=== PATIENT | male | born 1990 | race Caucasian/White ===

== ENCOUNTER 2017-05-20 00:01 | Emergency (ER) | payer OTHER ==
[2017-05-20 00:18] VITALS: TEMP 98.7
[2017-05-20] MEDS ORDERED: diphenhydrAMINE 50 MG/ML 1 ML VIAL IVP STA (00:31)
[2017-05-20] MEDS ORDERED: SODIUM CHLORIDE 0.9% 500 ML IV ONE (00:31)
[2017-05-20] MEDS ORDERED: METOCLOPRAMIDE 5 MG/ML 2 ML VIAL IVP STA (00:31)
[2017-05-20] MEDS ORDERED: KETOROLAC 30 MG/ML 1 ML VIAL IVP STA (00:31)
[2017-05-20] MEDS ORDERED: ORPHENADRINE 30 MG/ML 2 ML VIAL IVP STA (00:31)
--- NOTE | 2017-05-20 00:51 | CT ---
EXAM: CT Head Without Intravenous Contrast CLINICAL HISTORY: Reason: pain TECHNIQUE: Axial computed tomography images of the head/brain without intravenous contrast. CTDI is 58 mGy and DLP is 996 mGy-cm. This CT exam was performed using one or more of the following dose reduction techniques: automated exposure control, adjustment of the mA and/or kV according to patient size, and/or use of iterative reconstruction technique. COMPARISON: No relevant prior studies available. FINDINGS: Brain: No hemorrhage, large hypodensity, or mass effect. Ventricles: No hydrocephalus. Bones/joints: Unremarkable. Soft tissues: Unremarkable. Sinuses: Unremarkable. Mastoid air cells: Clear. IMPRESSION: No acute hemorrhage, hydrocephalus, or mass effect.
--- NOTE | 2017-05-20 01:23 | ED ---
Headache HPI - General Chief Complaint: Headache Stated Complaint: Headache Time Seen by Provider: 05/20/17 00:19 Source: patient, family, RN notes reviewed Mode of arrival: ambulatory Limitations: no limitations - History of Present Illness Initial Comments: This a 26-year-old male presents emergency Department chief complaint headache. Patient states that headache for 4 days states it has waxed and waned. Patient states that he has a history of migraine headaches diagnosed by himself. He states he's never had an MRI, CT or an evaluation by neurology. Patient states he normally just takes Excedrin states that is not alleviating his symptoms at this time. Patient denies any photosensitivity denies nausea, vomiting, fever, chills, neck pain. Patient states the headache physical squeezing pressure in size of his head. Patient states he also suffers from anxiety which is brother has anxiety at this time. - Related Data Home Medications Medication Instructions Recorded Confirmed ALPRAZolam [Xanax] 1 mg PO Q8HR 05/20/17 05/20/17 Buprenorphine HCl/Naloxone HCl 2 mg PO BID 05/20/17 05/20/17 [Suboxone 2 mg-0.5 mg Sl Film] Gabapentin 800 mg PO TID 05/20/17 05/20/17 Allergies Allergy/AdvReac Type Severity Reaction Status Date / Time No Known Allergies Allergy Verified 05/20/17 00:18 Review of Systems ROS Statement: Those systems with pertinent positive or pertinent negative responses have been documented in the HPI. ROS Other: All systems not noted in ROS Statement are negative. Past Medical History Additional Past Medical History / Comment(s): migraines History of Any Multi-Drug Resistant Organisms: None Reported Past Surgical History: Hernia Repair Past Psychological History: Anxiety Smoking Status: Current every day smoker Past Alcohol Use History: None Reported Past Drug Use History: None Reported General Exam Limitations: no limitations General appearance: alert, in no apparent distress Head exam: Present: atraumatic, normocephalic, normal inspection Eye exam: Present: normal appearance, PERRL, EOMI. Absent: scleral icterus, conjunctival injection, periorbital swelling ENT exam: Present: normal exam, normal oropharynx, mucous membranes moist, TM's normal bilaterally, normal external ear exam Neck exam: Present: normal inspection, full ROM. Absent: tenderness, meningismus, lymphadenopathy Respiratory exam: Present: normal lung sounds bilaterally. Absent: respiratory distress, wheezes, rales, rhonchi, stridor Cardiovascular Exam: Present: regular rate, normal rhythm, normal heart sounds. Absent: systolic murmur, diastolic murmur, rubs, gallop, clicks Extremities exam: Present: normal inspection, full ROM, normal capillary refill. Absent: tenderness, pedal edema, joint swelling, calf tenderness Neurological exam: Present: alert, oriented X3, CN II-XII intact, reflexes normal, other ([id number] intact bilaterally without overshooting). Absent : motor sensory deficit Psychiatric exam: Present: anxious Skin exam: Present: warm, dry, intact, normal color. Absent: rash Course Vital Signs 05/20/17 00:14 Temperature 98.7 F Pulse Rate 84 Respiratory 18 Rate Blood Pressure 129/76 O2 Sat by Pulse 98 Oximetry Medical Decision Making - Medical Decision Making 26 show male presented for headache. Patient CT shows no sign acute abdomen. Patient states medications given emergency Department are improving his symptoms. Patient has a normal neuro exam patient will be be discharged with follow-up with neurology as he is not been evaluated by neurologist for his migraine headaches. Return parameters were discussed. Disposition Clinical Impression: Migraine Disposition: HOME SELF-CARE Condition: Stable Instructions: Acute Headache (ED) Additional Instructions: Please return to the Emergency Department if symptoms worsen or any other concerns. Referrals: Nonstaff,Physician [Primary Care Provider] - 1-2 days Alyce Chacon MD [STAFF PHYSICIAN] - 1-2 days Time of Disposition: 01:36
[2017-05-20 01:55] VITALS: BP 115/56; PULSE 77; RESP 16
== END 2017-05-20 01:55 | disposition home or self-care (01) ==
LOC: EC 00:01
DX: G43.909 Migraine, unspecified, not intractable, without status migrainosus (principal); F41.9 Anxiety disorder, unspecified; F17.200 Nicotine dependence, unspecified, uncomplicated; Z79.899 Other long term (current) drug therapy
CPT/HCPCS: 70450; 99283; 96374; 96375 ×2; J1200; J2765; J1885

== ENCOUNTER 2019-01-27 19:18 | Emergency (ER) | payer OTHER ==
[2019-01-27 19:46] VITALS: BP 125/75; PULSE 97; RESP 20; TEMP 99.2
--- NOTE | 2019-01-27 21:07 | ED ---
ENT HPI - General Chief complaint: ENT Stated complaint: Tonsillitis Time Seen by Provider: 01/27/19 20:03 Source: patient Mode of arrival: ambulatory Limitations: no limitations - History of Present Illness Initial comments: Patient is a 28-year-old male presenting to emergency Department with complaints of tonsillitis that has been increasing over the past 2 days. Patient states he typically gets this 2-3 times a year. Patient recently completed a course of amoxicillin for a positive strep tonsillitis. Patient states he finished the medication yesterday however the last 3 days he has been having increase in pain and low-grade fevers. Patient states he took a Motrin approximately 1 hour prior to arrival. Patient denies nausea, vomiting, trouble breathing, chest pain. Patient has no other complaints at this time. 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 Patient states he was approximately 9 months clean and then had a single relapse approximately 6 days ago. Upon arrival to ER, vital signs are stable. - Related Data Home Medications Medication Instructions Recorded Confirmed ALPRAZolam [Xanax] 1 mg PO Q8HR 05/20/17 01/27/19 Buprenorphine HCl/Naloxone HCl 2 mg PO BID 05/20/17 01/27/19 [Suboxone 2 mg-0.5 mg Sl Film] Gabapentin 800 mg PO TID 05/20/17 01/27/19 Previous Rx's Medication Instructions Recorded Penicillin V Potassium [Pen Vee K] 500 mg PO BID 10 Days #20 tablet 01/27/19 Allergies Allergy/AdvReac Type Severity Reaction Status Date / Time No Known Allergies Allergy Verified 01/27/19 19:45 Review of Systems ROS Statement: Those systems with pertinent positive or pertinent negative responses have been documented in the HPI. ROS Other: All systems not noted in ROS Statement are negative. Past Medical History Additional Past Medical History / Comment(s): migraines, tonsilitis History of Any Multi-Drug Resistant Organisms: None Reported Past Surgical History: Hernia Repair Past Psychological History: Anxiety Smoking Status: Current every day smoker Past Alcohol Use History: None Reported Past Drug Use History: None Reported General Exam - General Exam Comments Initial Comments: GENERAL: Well-appearing, well-nourished and in no acute distress. HEAD: Atraumatic, normocephalic. EYES: Pupils equal round and reactive to light, extraocular movements intact, sclera anicteric, conjunctiva are normal. ENT: TMs normal, nares patent, oropharynx erythematous, tonsils 2+ enlarged with exudate. No tonsillar abscess seen. Uvula midline. Moist mucous membranes. NECK: Normal range of motion, supple without lymphadenopathy or JVD. LUNGS: Breath sounds clear to auscultation bilaterally and equal. No wheezes rales or rhonchi. HEART: Regular rate and rhythm without murmurs, rubs or gallops. ABDOMEN: Soft, nontender, normoactive bowel sounds. No guarding, no rebound. No masses appreciated. : Deferred EXTREMITIES: Normal range of motion, no pitting or edema. No clubbing or cyanosis. NEUROLOGICAL: Cranial nerves II through XII grossly intact. Normal speech, normal gait. PSYCH: Normal mood, normal affect. SKIN: Warm, Dry, normal turgor, no rashes or lesions noted. Limitations: no limitations Course Vital Signs 01/27/19 19:42 Temperature 99.2 F Pulse Rate 97 Respiratory 20 Rate Blood Pressure 125/75 O2 Sat by Pulse 100 Oximetry Medical Decision Making - Medical Decision Making Patient is a 28-year-old male presenting with tonsillitis 3 days. Patient just finished a course of amoxicillin for a positive strep tonsillitis yesterday. Patient states the previous 3 days his pain and low-grade fevers has returned. On exam patient has erythema of the oropharynx as well as 2+ tonsillar enlargement with exudate. No abscess seen, uvula midline. Strep today was negative. Patient will be started on penicillin VK for tonsillitis and will be given referral to ENT. The patient states he has these infections at least 3-4 times a year. Patient is agreement with this plan and care. Patient is stable for discharge at this time. Return parameters were discussed with the patient and he verbalized understanding. Case discussed with Dr. Diaz. - Lab Data Lab Results 01/27/19 Range/Units 20:30 Group A Strep Rapid Negative (Negative) Disposition Clinical Impression: Sore throat, Tonsillitis Disposition: HOME SELF-CARE Condition: Stable Instructions (If sedation given, give patient instructions): Tonsillitis (ED) Additional Instructions: Please return to the Emergency Department if symptoms worsen or any other concerns. Follow-up with ENT as discussed. Prescriptions: Penicillin V Potassium [Pen Vee K] 500 mg PO BID 10 Days #20 tablet Is patient prescribed a controlled substance at d/c from ED?: No Referrals: Nonstaff,Physician [Primary Care Provider] - 1-2 days Rupert Zaidi MD [STAFF PHYSICIAN] - 1-2 days
== END 2019-01-27 21:40 | disposition home or self-care (01) ==
LOC: EC 19:18
DX: J03.90 Acute tonsillitis, unspecified (principal); F41.9 Anxiety disorder, unspecified; F17.200 Nicotine dependence, unspecified, uncomplicated; Z79.899 Other long term (current) drug therapy
CPT/HCPCS: 87081; 87430; 99283

== ENCOUNTER → 2019-02-06 | Outpatient (CLI) | payer OTHER ==
--- NOTE | 2019-02-06 15:36 | CONS ---
CONSULTATION DATE OF SERVICE: 02/06/2019 A 28-year-old gentleman who has been evaluated in the [facility] for snoring and episodes of stopped breathing during sleep and also for significant excessive daytime sleepiness. HISTORY OF PRESENT ILLNESS/SLEEP-WAKE EVALUATION: Patient's usual sleep schedule from 11 p.m. to around 9 a.m. on working days and from midnight until 8:10 a.m. on weekends, usually no problems with falling asleep, although he has TV set in bedroom. He prefers to sleep on the stomach position. He snores loudly and wakes up with episodes of gasping for air, panic attack, grinding teeth. He has one episode of nocturia at night. Positive history of vivid dreams, night terrors, sleep talking, grinding teeth. Patient remembers awakenings with dry mouth. In the morning, patient wakes up tired, has difficulties to pay attention, worry about his sleep, has problems with concentration, irritability and episodes of anxiety. [place] Sleepiness Scale is significantly increased to 18. Possible questionable history of hypnagogic hallucinations. Patient has positive history of sleep bone paralysis. PAST MEDICAL HISTORY: Positive for anxiety, history of using opioid dependence. PAST SURGICAL HISTORY: Surgery for umbilical hernia in 2000. SOCIAL HISTORY: Positive for smoking about half pack a day for about 10 years. Alcohol consumption rarely. FAMILY HISTORY: Positive for obstructive sleep apnea by his father, snoring, hypertension, heart problems, arthritis, asthma, lung problems, emphysema, pancreatic cancer. REVIEW OF SYSTEMS: 1. Multiple awakenings from sleep. 2. Sleep paralysis. 3. Significant excessive daytime sleepiness. 4. Vivid dreams. 5. Episodes of anxiety. MEDICATIONS: Neurontin, , Prevacid, Catapres. PHYSICAL EXAM: gentleman without distress, BP 149/79, HR around 116, RR 16, height 5, 8, weight 145, body mass index 22, temperature 97.8, oxygen saturation at room air 100%. OROPHARYNX: Retrognathic 1-2 mm, position of soft palate Mallampati 2. Tonsils present bilaterally, slightly hypertrophic. Slight restriction of nasal breathing. HEART: S1, S2, tachycardia. Neck Supple, no JVD. Thyroid is not palpable. LUNGS Clear to percussion and to auscultation. Good air exchange. No wheezing or rhonchi. ABDOMEN Soft and nontender. Bowel sounds are present. No organomegaly appreciated. EXTREMITIES No clubbing or cyanosis. HAT CONDITIONER Awake, alert, and oriented X3. Cranial nerves 2 to 7 intact. There is no fasciculation or atrophy. noted. No focal deficits observed. IMPRESSION: 1. Snoring, episodes of awakenings from sleep with gasping for air. Some restriction of nasal breathing. Possible obstructive sleep apnea-hypopnea syndrome. 2. History of opioid dependence, presently on treatment with , possibility of central sleep apnea. 3. Sleep paralysis. 4. Significant excessive daytime sleepiness. [place] Sleepiness Scale increased to 18. Differential diagnosis showed a positive history of hypnagogic hallucinations or sleep paralysis. Differential diagnosis would include narcolepsy without cataplexy. 5. History of anxiety. 6. History of night terrors. 7. Allergy. PLAN: 1. Polysomnography for evaluation of patient's breathing during sleep. 2. CPAP/BiPAP titration if sleep study confirms obstructive sleep apnea-hypopnea syndrome. 3. Preferable position during sleep on the side. 4. No driving if patient feels any sleepiness. 5. I will see patient for follow up visit to explain results of testing and following plan. 6. Multiple sleep latency test if sleep study will be negative for obstructive sleep apnea-hypopnea syndrome. Thank you very much for allowing me to participate in the management of your patient. Sincerely, Krystian Gonzalez MD, PhD, FAASM Diplomat of [employer] [employer] [employer] [facility] [place]. MMODL / IJN: [id number] /
== END | disposition home or self-care (01) ==
LOC: SLEEP 13:27
PROVIDERS: ATTEND Internal Medicine
DX: G47.53 Recurrent isolated sleep paralysis (principal); G47.10 Hypersomnia, unspecified; R06.83 Snoring; T78.40XA Allergy, unspecified, initial encounter; F17.210 Nicotine dependence, cigarettes, uncomplicated; F11.21 Opioid dependence, in remission; Z86.59 Personal history of other mental and behavioral disorders; Z98.890 Other specified postprocedural states; Z79.899 Other long term (current) drug therapy
CPT/HCPCS: 99211